=== PATIENT | female | born 1985 | race Asian ===

== ENCOUNTER 2023-02-14 13:41 | Emergency (ER) | payer BC ==
[~2023-02-14] VITALS: Ht 167.6 cm; Wt 54.0 kg
[2023-02-14 14:10] VITALS: BP 113/68; PULSE 102; RESP 20; O2SAT 100
[2023-02-14 14:56] LABS: BASOPHILS % 0.1 % (0.0-2.0); HEMATOCRIT. 39.2 % (36.0-48.0); HEMOGLOBIN. 13.3 g/dL (12.0-16.0); LYMPHOCYTES % 7.8 % (20.0-50.0); MEAN CORPUSCULAR HEMOGLOBIN 31.2 pg (28.0-32.0); MEAN CORPUSCULAR HGB CONC 33.8 g/dL (31.0-37.0); MEAN CORPUSCULAR VOLUME 92.1 fL (81.0-99.0); MONOCYTES % 5.9 % (2.0-8.0); NEUTROPHILS % 86.2 % (40.0-76.0); PLATELET 263 x1000/uL (130-400); RED BLOOD CELL COUNT 4.26 mill/uL (4.2-5.4); RED CELL DISTRIBUTION WIDTH 12.5 % (11.6-14.6)
[2023-02-14] MEDS ORDERED: ACETAMINOPHEN 325MG TABLET PO ONE (15:30)
[2023-02-14 15:31] LABS: CHLORIDE 98 mEq/L (98-107); INDEX HEMOLYSI 1 (1-3); INDEX ICTERIC 1 (1-4); INDEX LIPEMIC 1 (1-3); POTASSIUM 3.9 mEq/L (3.5-5.1); SODIUM 131 mEq/L (136-145)
[2023-02-14 15:52] LABS: ALANINE AMINOTRANSFERASE 16 IU/L (13-61); ASPARTATE AMINOTRANSFERASE 18 IU/L (15-37); BILIRUBIN TOTAL 0.7 mg/dL (0.1-1.0); CALCIUM 9.1 mg/dL (8.5-10.1); CARBON DIOXIDE 24 mEq/L (21-32); CREATININE 0.6 mg/dL (0.6-1.3); GLUCOSE 106 mg/dL (70-105); PROTEIN TOTAL 8.5 g/dL (6.0-8.3); UREA NITROGEN BLOOD 9 mg/dL (7-21)
[2023-02-14 16:14] LABS: HCG SCREEN NEGATIVE
[2023-02-14 18:41] VITALS: TEMP 99.3
[2023-02-14] MEDS ORDERED: ACETAMINOPHEN 325MG TABLET PO NR (18:45)
[2023-02-14] MEDS ORDERED: IBUP-2028 MT (20:40)
== END 2023-02-14 21:16 | disposition home or self-care (01) ==
LOC: ER 14:17
DX: Z20.822 Contact with and (suspected) exposure to COVID-19 (principal)
CPT/HCPCS: 99283; 87426; 80053; 81025; 84703; 87430; 85025; 87070; 36415; C9803